=== PATIENT | male | born 1955 | race Caucasian/White ===

== ENCOUNTER → 2016-07-18 | Day surgery (SDC) | payer OTHER ==
[~2016-07-18] VITALS: Ht 188 cm; Wt 100.9 kg
[~2016-07-18] MED LIST: *ONDANSETRON 4 MG VIAL PERIprocedural Use ONLY ONE; ATROPINE SULFATE 1% OPHT SOLN 2 ML BTL ONE; BALANCED SALT SOLN OPHT IRRIG 15 ML BTL ONE; CHLORHEXIDINE GLUCONATE 2 % 1 PACK (2 CLOTHS) TOPICAL PRN; DEXAMETHASONE SOD PHOS 4 MG/ML VIAL ONE; DO NOT ADM ANY ANTICOAGULANT DRUGS PRN; EPINEPHrine HCL (1:1000) 1 MG/ML VIAL ONE; HYDROmorphone HCL PF 2 MG/ML VIAL ONE; INSULIN HUMAN REGULAR 1,000 UNITS/10 ML VIAL SQ PRN; LACTATED RINGER'S 1000 ML IV PRN; LISI10TA3 PO; METOPROLOL TARTRATE 25 MG TAB PO PRN; ONDANSETRON HCL 4 MG/2 ML VIAL ONE; POVIDONE IODINE 5% (ANTISEPSIS KIT) 4 APPLICATIONS EACH NARE PRN; PROPOFOL 200 MG/20 ML AMP IV ONE; SODIUM CHLORID 0.9% 500 ML IV PRN; STERILE WATER FOR INJ 20 ML VIAL ONE; TOBRAMYCIN/DEXAMETHASONE OPTH OINT 3.5 GM TUBE ONE; TRIAMCINOLONE ACETONIDE/PF 40 MG/ML OPTH VIAL ONE; TROPICAMIDE 1% OPHT SOLN 15 ML BTL ONE; ceFAZolin INJ 1,000 MG VIAL ONE; ePHEDrine/NS 25 MG/5 ML SYR IV ONE; oxyCODONE/ACETAMINOPHEN 5 MG/325 MG TAB ONE
[2016-07-18 12:18] VITALS: BP 135/82; PULSE 64; RESP 20; TEMP 98.1; O2SAT 97
[2016-07-18 12:21] LABS: AUTOMATED NEUTROPHIL # 4.5 TH/MM3 (1.8-7.7); BASOPHIL % 0.4 % (0.0-2.0); EOSINOPHIL # 0.1 TH/MM3 (0-0.4); EOSINOPHIL % 2.1 % (0.0-4.0); HEMO FLAGS DIFF FINAL; LYMPH % 17.2 % (9.0-44.0); MEAN CELL VOLUME 90.2 FL (80.0-100.0); MEAN CORPUSCULAR HEMOGLOBIN 31.4 PG (27.0-34.0); MEAN CORPUSCULAR HGB CONC 34.7 % (32.0-36.0); MONO % 6.2 % (0.0-8.0); NEUT % 74.1 % (16.0-70.0); PLATELET COUNT 193 TH/MM3 (150-450); RED BLOOD COUNT 4.32 MIL/MM3 (4.50-5.90); RED CELL DISTRIBUTION WIDTH 14.3 % (11.6-17.2)
[2016-07-18] MEDS: CYCLOPENTOLATE HCL 1% OPHT SOLN 2 ML BTL LEFT EYE SCH ×4 (14:30→15:15)
[2016-07-18] MEDS: ATROPINE SULFATE 1% OPHT SOLN 5 ML BTL LEFT EYE SCH ×4 (14:30→15:15)
[2016-07-18] MEDS: PHENYLEPHRINE HCL 2.5% OPTH SOLN 2 ML BTL LEFT EYE SCH ×4 (14:30→15:15)
[2016-07-18] MEDS: TROPICAMIDE 1% OPTH SOLN 2 ML BTL LEFT EYE SCH ×4 (14:30→15:15)
[2016-07-18 18:25] VITALS: BP 148/75; PULSE 92; RESP 16; TEMP 98.4; O2SAT 95
--- NOTE | 2016-07-18 20:53 | MP ---
cc: JACE LOPEZ M.D. DATE OF SURGERY: 07/18/2016. PREOPERATIVE DIAGNOSIS: Rhegmatogenous retinal detachment. POSTOPERATIVE DIAGNOSIS: Rhegmatogenous retinal detachment. OPERATIVE PROCEDURE PERFORMED: Trans pars plana vitrectomy with internal drainage of subretinal fluid using Perfluoron liquid, endolaser photocoagulation and gas/fluid exchange, left eye. SURGEON: Jace Lopez MD. ANESTHESIA: General laryngeal mask anesthesia INDICATIONS FOR THE PROCEDURE: Mr. Arias is a 60-year-old gentleman with a history of retinal detachment in his right eye repaired with vitrectomy who had a retinal break lasered in the inferonasal periphery of his left eye on 05/19/2016. He did well until this past weekend when he started having "blurry vision". He was found to have visual acuity down to 20/200 and the macula off retinal detachment which went from approximately three o'clock up and around to twelve o'clock. The diagnosis was explained to him and it was suggested that he undergo a vitrectomy and possible scleral buckle procedure to repair this detachment. He voiced that he would prefer the vitrectomy alone if at all possible. He was consented for both procedures. The risks and benefits of surgery were discussed with the patient. Informed consent was obtained and no guarantee was made as to visual outcome. DESCRIPTION OF THE PROCEDURE IN DETAIL: He was brought to [facility] operating room #1 and placed on the operating table. Appropriate anesthesia monitoring devices were applied and he was placed under general anesthesia using laryngeal mask. The left eye was identified as the operative site and then prepped and draped in the usual sterile fashion. A lid speculum was placed. The microscope was brought around and adjusted. At this time, an appropriate time-out was called and the surgical team agreed to the surgical site and proposed procedure. Using the Harjinder 23-gauge vitrectomy system, the trocar cannulas were placed 4 mm posterior to the limbus after first displacing the conjunctiva and with a beveled scleral entrance. The first one was placed at approximately three o'clock and verified to be in the posterior chamber. An infusion cannula was affixed to it and it was turned on. Two additional trocar cannulas were placed at ten and two o'clock. A small amount of Kenalog was injected to visualize the vitreous and the eye was entered with the Endo deputy sheriff lieutenant light pipe and vitrectomy cutter. Using the flat contact lens, a core vitrectomy was carried out as far out as to the periphery as the view would allow. A partial fill of Perfluoron was then placed to flatten the posterior retina and using the BIOME wide-angle viewing system, the more peripheral vitreous up to the vitreous base was removed 360 degrees. The Perfluoron fill was completed and then using the endolaser probe with a power of 300 milliwatts and 0.15-second exposure, the peripheral retina and the prior retinal tear at eight o'clock were treated and then using the laser indirect delivery system and a power of 350 milliwatts and 0.15-second exposure, the rest of the peripheral retina was treated for a total of 1,085 laser spots. The Perfluoron was then exchanged for air and then the air was exchanged for a 15% mixture of C3F8 gas. The superior temporal and inferior temporal sclerotomies were closed with 7-0 Vicryl and the superonasal sclerotomy was self-sealing. This left the eye formed and with good pressure. Atropine drops were placed on the cornea followed by subconjunctival actions of Ancef 125 mg in 0.5 cc and Decadron 2 mg in 0.5 cc. The lid speculum was removed and the patient was undraped. TobraDex ointment was placed on the cornea and then the left eye was patched and shielded. The patient had the laryngeal mask removed in the room and was returned to recovery in good condition lying on his right side. When awake and cooperative, he will be asked to begin face-down positioning. MD MATTIE Che/RADHA /5:08 PM /8:45 PM
== END | disposition home or self-care (01) ==
LOC: HSDC 11:02
PROVIDERS: ATTEND Ophthalmology
DX: H33.012 Retinal detachment with single break, left eye (principal); I10 Essential (primary) hypertension; Z01.818 Encounter for other preprocedural examination
CPT/HCPCS: 00145; 67039; 85025; J0171; J0690; J1100; J1170; J2405; J3300; J7120

== ENCOUNTER → 2016-08-16 | Day surgery (SDC) | payer OTHER ==
[~2016-08-16] MED LIST changes: -*ONDANSETRON 4 MG VIAL PERIprocedural Use ONLY ONE; +APREPITANT 40 MG CAP ONE; -ATROPINE SULFATE 1% OPHT SOLN 2 ML BTL ONE; -BALANCED SALT SOLN OPHT IRRIG 15 ML BTL ONE; -CHLORHEXIDINE GLUCONATE 2 % 1 PACK (2 CLOTHS) TOPICAL PRN; -DO NOT ADM ANY ANTICOAGULANT DRUGS PRN; -HYDROmorphone HCL PF 2 MG/ML VIAL ONE; -INSULIN HUMAN REGULAR 1,000 UNITS/10 ML VIAL SQ PRN; +LACTATED RINGER'S 1000 ML INJ 1,000 ML ONE; -LACTATED RINGER'S 1000 ML IV PRN; -METOPROLOL TARTRATE 25 MG TAB PO PRN; +MIDAZOLAM HCL 2 MG/2 ML VIAL ONE; +MOXIFLOXACIN 0.5% OPHT SOLN 3 ML BTL ONE; +ONDANSETRON HCL 4 MG/2 ML VIAL IV PUSH ONE; -ONDANSETRON HCL 4 MG/2 ML VIAL ONE; +PHENYLEPHRINE HCL 10% OPTH SOLN 5 ML BTL ONE; -POVIDONE IODINE 5% (ANTISEPSIS KIT) 4 APPLICATIONS EACH NARE PRN; +PROMETHAZINE INJ 25 MG/ML VIAL ONE; +SCOPOLAMINE 1.5 MG PATCH ONE; -SODIUM CHLORID 0.9% 500 ML IV PRN; +SODIUM CHLORIDE 0.9% INJ 10 ML ONE; -STERILE WATER FOR INJ 20 ML VIAL ONE; +TETRACAINE 0.5% OPTH SOLN 4 ML BTL ONE; +TOBRAMYCIN 0.3%/DEXAMETHASONE 0.1% OPHT SUSP 5 ML BTL ONE; +TRIAMCINOLONE ACETONIDE 40 MG/ML VIAL ONE; -TRIAMCINOLONE ACETONIDE/PF 40 MG/ML OPTH VIAL ONE; -TROPICAMIDE 1% OPHT SOLN 15 ML BTL ONE; -ePHEDrine/NS 25 MG/5 ML SYR IV ONE; -oxyCODONE/ACETAMINOPHEN 5 MG/325 MG TAB ONE; +prednisoLONE ACETATE 1% OPHT SUSP 5 ML BTL ONE
--- NOTE | 2016-08-17 23:25 | MP ---
cc: STORM VILLALBA MD DATE OF SURGERY 08/16/16 1953 POSTOPERATIVE DIAGNOSIS Recurrent retinal detachment left eye. POSTOPERATIVE DIAGNOSIS Recurrent retinal detachment left eye. PROCEDURE Pars plana vitrectomy, retinal detachment repair, endolaser, air-fluid exchange, insertion of 16% C3F8 gas left eye. ANESTHESIA Dr. Odonnell, blood BLOOD LOSS Less than 1 mL COMPLICATIONS None INDICATIONS FOR PROCEDURE This is a delightful patient who developed ad a large retinal detachment of his left eye. The patient elected for surgical correction. The patient prefers to avoid scleral buckling if able and elected for vitrectomy with gas placement. The patient understands a strict face-down position would be necessary. PROCEDURE NOTE Informed consent was obtained, the patient was brought to the operating room. General anesthesia was established. The left eye was prepped and draped in sterile fashion with Betadine in the conjunctival fornix. A three port pars plana vitrectomy was established with self-retaining infusion cannula. Peripheral vitreous was removed. Perfluoron was instilled and subretinal fluid removed. Retina was nicely reattached. Laser was applied surrounding retinal breaks and nearly 360 degrees. Air-fluid exchange was carried out. Retina was noted to remain nicely attached. 16% C3F8 gas was instilled. Scleral depression examination revealed no untreated retinal holes, tears or detachments. Trocars removed and sclerotomies closed. Subconjunctival injection of Ancef and dexamethasone were given. The eye was patched and Tobramycin ointment. The patient was brought to recovery room in stable condition and will continue to follow up with [facility] for his postoperative care. MD DANITZA Chong/ /7:44 AM /11:17 PM BRYN
== END | disposition home or self-care (01) ==
LOC: ESDC 13:19
PROVIDERS: ATTEND Ophthalmology
DX: H33.22 Serous retinal detachment, left eye (principal)
CPT/HCPCS: 00145; 67108; J0171; J0690; J1100; J2250; J2405; J2550; J3010; J7120; J8501; J3301

== ENCOUNTER → 2016-12-10 | Day surgery (SDC) | payer OTHER ==
[~2016-12-10] MED LIST changes: +ACETAMINOPHEN 325 MG TAB ONE; -APREPITANT 40 MG CAP ONE; +BALANCED SALT SOLN OPHT IRRIG 15 ML BTL ONE; +TETRACAINE 0.5% OPTH SOLN 15 ML BTL ONE; -TETRACAINE 0.5% OPTH SOLN 4 ML BTL ONE
--- NOTE | 2016-12-14 16:47 | MP ---
cc: STORM VILLALBA DATE OF SURGERY 12/13/16 POSTOPERATIVE DIAGNOSIS 1. Dislocated posterior chamber intraocular lens, left eye, 2. Retinal detachment status post repair, left eye. PROCEDURE Pars plana vitrectomy, removal of dislocated intraocular lens, insertion of MA 60 AC intraocular lens with scleral fixation, endolaser, left eye. Superior thyroidectomy left eye. ANESTHESIA Dr. Odonnell. general BLOOD LOSS Less than 1 mL. COMPLICATIONS None INDICATION FOR PROCEDURE This is a delightful patient with history of retinal detachment in his left eye. The patient previously underwent retinal detachment repair and had dislocation of his posterior chamber intraocular lens of his left eye. The patient elected for surgical correction. PROCEDURE NOTE After informed consent was obtained, the patient was brought to the operating room and general anesthesia was established. The left eye was prepped and draped in sterile fashion with Betadine in the conjunctival fornix. A three port pars vitrectomy was established with self-retaining infusion cannula. Vitreous surrounding the posteriorly dislocated intraocular lens was relieved with vitrectomy. The dislocated posterior chamber intraocular lens was brought into the anterior chamber after Visacoat was instilled. The dislocated posterior chamber intraocular lens was cut into three pieces using bimanual technique and intraocular scissors and removed via enlarged clear corneal incision. A 60 AC 21.5 diopter power intraocular lens was inserted via the same clear corneal incision. The clear corneal incision was then closed with 10-0 nylon. Scleral tunnels were fashioned with 23-gauge MVR blade. The __ haptic of the newly inserted lens was externalized and then secured in the scleral tunnel. The sclerotomies were sutured around the __ haptic with several Vicryl suture. The scleral fixated posterior chamber intraocular lens was well centered and stable. Scleral depressed examination revealed an area of peripheral retinal thinning which was treated with endolaser. No untreated retinal holes, tears or detachments were seen. Intra-vitreal Kenalog was instilled. Trocar was removed and sclerotomies closed with several Vicryl sutures. Conjunctiva was reapproximated with 6-0 plain gut. Subconjunctival injection of Ancef and dexamethasone were given. The eye was patched with Tobramycin ointment. The patient was brought to recovery room in stable condition and to continue followup with [facility] for his postoperative care. MD DEREK Chong /5:19 PM /4:32 PM
== END | disposition home or self-care (01) ==
LOC: ESDC 07:00
PROVIDERS: ATTEND Ophthalmology
DX: H27.132 Posterior dislocation of lens, left eye (principal)
CPT/HCPCS: 00142; 00145; 66985; 67043; 67121; J0171; J0690; J1100; J2250; J2405; J2550; J3010; J3301; J7120; V2632